=== PATIENT | male | born 1940 | race Caucasian/White ===

== ENCOUNTER → 2017-07-25 | Outpatient (CLI) | payer OTHER ==
[~2017-07-25] MED LIST: AMLO5TAB2 PO; ASPI1TAB57 PO; ATOR20TA15 PO; ENAL10TA PO; GLIM4TAB PO; LEVO25TA4 PO; MELO7.5T27 PO; METF1000 PO; METF500T PO; MULT1TAB85 PO; SPIRCAP INH; VITA100018 PO
--- NOTE | 2017-07-25 19:41 | EKG ---
Date Performed: 07/25/2017 Time Performed: 11:54:10 PTAGE: 77 years EKG: Sinus rhythm MARKED LEFT AXIS DEVIATION ABNORMAL ECG PREVIOUS TRACING : 05/06/2016 17. Since the prior tracing, there has been no significant change DOCTOR: Lenin Quintero Interpretating Date/Time 07/25/2017 19:40:23
== END ==
LOC: HSDC 11:39
PROVIDERS: ATTEND Orthopaedic Surgery Orthopaedic Surgery of the Spine
DX: Z01.810 Encounter for preprocedural cardiovascular examination (principal); R94.31 Abnormal electrocardiogram [ECG] [EKG]
CPT/HCPCS: 93005

== ENCOUNTER 2017-12-25 05:21 | Inpatient (IN) ==
[2017-12-25] MEDS ORDERED: Gabapentin 300 MG Capsule PO ONE ×2 (05:56→06:47)
[2017-12-25] MEDS ORDERED: Celecoxib 200 MG Capsule PO ONE ×2 (05:56→06:47)
[2017-12-25] MEDS ORDERED: Dexamethasone Inj 20 MG/5 ML Vial IV.PUSH ONE ×2 (05:56→06:47)
[2017-12-25] MEDS ORDERED: Famotidine PF Inj 20 MG/2 ML Vial IV.PUSH ONE ×2 (05:56→06:47)
[2017-12-25] MEDS ORDERED: Insulin NovoLIN Regular Correctional Sugar Inj SQ SCH (06:00)
[2017-12-25] MEDS ORDERED: Chlorhexidine 4% Topical 120 APPLIC/120 ML Bottle TOPICAL SCH (06:00)
[2017-12-25] MEDS ORDERED: Sodium Chlor 0.9% Inj 500 ML IV.SIG SCH (06:00)
[2017-12-25] MEDS ORDERED: Bupivacaine/Epi PF 0.25% Inj 20 ML, Bupivacaine Liposo PF 1.3% Inj 20 ML, Sodium Chlor ... P-ARTICULR SCH ×2 (06:00)
[2017-12-25] MEDS ORDERED: Metoprolol Tartrate 25 MG Tablet PO SCH (06:00)
[2017-12-25] MEDS ORDERED: Chlorhexidine Gluconate 2% 1 Pack (2 Cloths) TOPICAL SCH (06:00)
[2017-12-25] MEDS ORDERED: Tranexamic Acid Inj 1,430 MG in Sodium Chlor 0.9% Inj 100 ML IV.SIG SCH (06:00)
[2017-12-25] MEDS ORDERED: Vancomycin Inj 1 GM/200 ML PIGGYBACK IV.SIG SCH ×2 (06:00→18:00)
[2017-12-25] MEDS ORDERED: fentaNYL Citrate Inj 100 MCG/2 ML Ampul ONE (06:27)
[2017-12-25] MEDS ORDERED: Famotidine PF Inj 20 MG/2 ML Vial ONE (06:27)
[2017-12-25] MEDS: ceFAZolin 2 GM Premix Inj 2 GM/50 ML PIGGYBACK IV.SIG SCH ×3 (07:01→22:10)
--- NOTE | 2017-12-25 07:18 | P.DCO ---
- Physical Therapy Physical Therapy: Gait training Hip: Total hip, Protocol: Right, Progress to weight bearing Right Lower Extremity Weight Bearing: Weight bearing as tolerated - Nursing Dressing changes: Do not change dressing (x 6 days), Daily dressing change ( beginning POD 7 with primapore. maintain surgical mesh on incision) - Certification Need for Home Health services: I have seen patient Curtis Mcgee on 12/25/17. My clinical findings support the need for the requested home health care services because: Need for Home Health Services: Limited mobility due to disease progression Homebound Certification: I certify that my clinical findings support that this patient is homebound because: Homebound Certification: Post-op weakness
--- NOTE | 2017-12-25 08:52 | P.OP ---
- Preoperative Diagnosis (1) Osteoarthritis of right hip Date of procedure: 12/25/17 Procedure: Right total hip arthroplasty via anterior approach Anesthesia: GETA Surgeon: Beau Magallanes MD Revising Clerk: OSBALDO Sultana PA-C The surgical procedure was assisted by my physician operations and intelligence assistant. My P.A. presence was necessary throughout this case for the manipulation and positioning of the surgical extremity. My P.A. was assisting me throughout the duration of this procedure. The skill set of a physician operations and intelligence assistant was medically necessary to complete this procedure. During the surgical case the director surgical was working at the back table and the physician operations and intelligence assistant was directly assisting me. Estimated blood loss (mL): 250 Operation and Findings: PLAN OF ACTIVITY Weight bear as tolerated. IMPLANTS USED DePuy Corail size [12] collared stem with a size [54] [place] Gription cup, [54 /36] Altrx poly liner, and a [36+1 metal head. DETAILS OF PROCEDURE: This patient has a long history of hip pain. Patient was found to have severe osteoarthritis. The patient had radiographic evidence of joint space narrowing with [id number] arthritis and osteophytes around the acetabulum as well as the femoral head. There was also some cystic changes. The patient failed conservative treatment with pain medications, anti-inflammatories, physical therapy, assistive devices including a cane, as well as therapeutic injection of the hip. Patient's hip arthritis was limiting his ability to ambulate and perform activities of daily living. The patient wished to proceed with surgery and informed consent was obtained. Operative site was marked. I discussed both posterior approach and anterior approach with the patient and decision was made for anterior approach. Patient was brought to OR and placed on OR table. IV sedation and general anesthesia was administered by anesthesiologist. Patient positioned on a Sharon table and was given IV antibiotics. Time-out procedure was performed. The hip and thigh were prepped with alcohol followed by Hibiclens. The thigh was draped in the usual sterile fashion. Clean Air Suite was used for this procedure. The procedure began with a 5-inch incision over the anterolateral thigh. Subcutaneous tissue was dissected with Bovie. The fascia over the tensa fasciae latae was incised. Care was taken to avoid injury to the lateral femoral cutaneous nerve. The tensor muscle was retracted laterally. Sartorius was retracted medially. Retractors were now placed. The reflected head of the rectus is now elevated. A capsulotomy was performed over the anterior head capsule. Sutures were placed to help retract the capsule. At this point the femoral head and neck were identified. With soft tissue protected, oscillating saw was used to make a cut through the femoral neck, the femoral head was now removed. At this point attention was turned to preparation of the acetabulum. The labrum was excised. The acetabulum was sequentially reamed up to size [54]. A [place] cup was now placed. Fluoroscopy was used to aid in identification of appropriate version. Cup was fully impacted and found to have excellent fit. Hole eliminator was now placed. The liner was now impacted into the cup. At this point the hip was externally rotated. A hook was placed around the proximal femur. The capsule was released off the lateral and medial femur. The hip was now extended and adducted. Retractors were placed around the proximal femur to allow for exposure. A box osteotome was used to remove the lateral cortex of the femoral neck. A broach was used to help lateralize the prosthesis. Canal finder was used to create a path down the canal. Next, the canal was sequentially broached up to size [12]. This was found to be an excellent fit. Calcar planer was placed. A standard head was placed, and the hip was reduced. The hip was found to have excellent stability with good range of motion. The leg lengths were measured under fluoroscopy and found to be equal compared to preoperatively. Trial broach was removed. The Corail stem was opened. Stem was fully impacted into the proximal femur in appropriate version. The femoral head was placed. The hip was again reduced. Fluoroscopy confirmed excellent alignment of prosthesis. The wound was thoroughly irrigated and capsule was closed with #1 Vicryl. The fascia over the tensor fasciae muscle was closed with #1 Vicryl, subcutaneous tissue was closed with 3-0 Vicryl and the skin was closed with maricarmen and Dermabond skin closure. The capsule layers, muscle, and subcutaneous tissue were injected with a mixture of saline and bupivicaine. Dressings were applied. The patient was transferred to Recovery Room in stable condition.
[2017-12-25] MEDS ORDERED: Post-op Orders (for Pharmacy) OTHER STA (08:54)
[2017-12-25] MEDS ORDERED: Promethazine 25 MG Supp RECTAL PRN (08:54)
[2017-12-25] MEDS ORDERED: Bisacodyl 10 MG Supp RECTAL PRN (08:54)
[2017-12-25] MEDS ORDERED: Morphine Inj 4 MG/ML Vial IV.PUSH PRN (08:54)
[2017-12-25] MEDS ORDERED: Tranexamic Acid Inj 1,000 MG in Sodium Chlor 0.9% Inj 100 ML IV.SIG SCH (09:00)
[2017-12-25] MEDS ORDERED: *Meperidine Inj 25 MG/ML Vial PERIprocedural Use ONLY ONE (09:11)
[2017-12-25] MEDS ORDERED: Ketorolac Inj 30 MG/ML (IVP) Vial ONE (09:41)
--- NOTE | 2017-12-25 09:57 | XR ---
EXAM DATE: 12/25/2017 9:44 AM EDT AGE/SEX: 77 years / Male INDICATIONS: Post op right total hip replacement. CLINICAL DATA: This is the patient's initial encounter. Patient reports that signs and symptoms have been present for 1 day and indicates a pain score of Nonresponsive. MEDICAL/SURGICAL HISTORY: . Hypertension. Hypercholesterolemia. Chronic obstructive pulmonary d isease. Diabetes. . Right total hip. COMPARISON: No prior exams available for comparison. FINDINGS: Total hip arthroplasty is in place on the right side. The femoral and acetabular componen ts appear intact. There are no signs of loosening or fracture. CONCLUSION: Intact total hip prosthesis for technique. Electronically signed by: Renetta Mcmanus MD 12/25/2017 9:55 AM EDT
[2017-12-25] MEDS: amLODIPine 5 MG Tablet PO SCH ×2 (10:06→20:06)
[2017-12-25] MEDS ORDERED: Lidocaine PF 1% Inj 5 ML Syringe INFILTRATN ONE (14:34)
[2017-12-25] MEDS: Celecoxib 200 MG Capsule PO SCH ×2 (14:34→20:05)
[2017-12-25] MEDS ORDERED: Glycopyrrolate Inj 1 MG/5 ML Syringe IV.PUSH ONE (14:34)
[2017-12-25] MEDS ORDERED: Neostigmine Inj 5 MG/5 ML Syringe IV.PUSH ONE (14:34)
[2017-12-25] MEDS: Ketorolac Inj 30 MG/ML (IVP) Vial IV.PUSH SCH ×2 (14:34→22:00)
[2017-12-25] MEDS ORDERED: Phenylephrine/NS 1000 MCG/10ML Syringe IV.PUSH ONE (14:34)
[2017-12-25] MEDS: Glimepiride 4 MG Tablet PO SCH ×2 (14:34→20:06)
[2017-12-25] MEDS: Calcium/Vitamin D 250/125 MG Tablet PO SCH ×2 (14:34→17:33)
[2017-12-25] MEDS: Senna/Docusate Sodium 8.6/50 MG Tablet PO SCH ×2 (14:34→20:05)
[2017-12-25] MEDS: Multivitamin/Minerals Therapeutic Tablet PO SCH (14:35)
[2017-12-25] MEDS: Levothyroxine 75 MCG Tablet PO SCH (14:35)
--- NOTE | 2017-12-25 17:05 | XR ---
EXAM DATE: 12/25/2017 5:01 PM EDT AGE/SEX: 77 years / Male INDICATIONS: Right total hip replacement. CLINICAL DATA: This is the patient's initial encounter. Patient reports that signs and symptoms have been present for 1 day and indicates a pain score of Nonresponsive. MEDICAL/SURGICAL HISTORY: None. None. COMPARISON: No prior exams available for comparison. FINDINGS Total hip arthroplasty is in place. The femoral and acetabular components appear intact. T here are no signs of loosening or fracture. CONCLUSION: Intact total hip prosthesis for technique. Electronically signed by: Renetta Mcmanus MD 12/25/2017 5:04 PM EDT
[2017-12-25] MEDS: Vancomycin Inj 1,000 MG in Sodium Chlor 0.9% Inj 250 ML IV.SIG SCH (17:34)
[2017-12-26 05:10] LABS: Hematocrit 26.9 % (39.0-51.0)
[2017-12-26] MEDS: Vancomycin Inj 1,000 MG in Sodium Chlor 0.9% Inj 250 ML IV.SIG SCH (05:27)
[2017-12-26] MEDS: ceFAZolin 2 GM Premix Inj 2 GM/50 ML PIGGYBACK IV.SIG SCH ×2 (06:37→11:51)
[2017-12-26] MEDS: Levothyroxine 75 MCG Tablet PO SCH (06:37)
--- NOTE | 2017-12-26 06:40 | P.PNOP ---
Subjective Interval history: POD 1 s/p right Anterior EVARISTO -doing well. reports soreness but states that therapy went well yesterday. Physical Exam Vital signs: Vital Signs 12/25/17 09:06 12/25/17 09:15 12/25/17 09:30 Temperature 98 F Pulse Rate 105 H 91 H 85 Respiratory Rate 20 15 18 Blood Pressure 163/73 H 151/70 H 141/60 H Pulse Oximetry 96 95 95 12/25/17 09:45 12/25/17 10:00 12/25/17 10:17 Temperature Pulse Rate 84 80 Respiratory Rate 14 17 Blood Pressure 140/65 136/64 Pulse Oximetry 97 96 98 12/25/17 10:30 12/25/17 11:00 12/25/17 12:00 Temperature Pulse Rate 84 81 80 Respiratory Rate 15 12 14 Blood Pressure 120/56 L 97/49 L 107/53 L Pulse Oximetry 99 96 94 L 12/25/17 12:30 12/25/17 13:00 12/25/17 13:20 Temperature 98.2 F Pulse Rate 79 Respiratory Rate 19 Blood Pressure 117/56 L Pulse Oximetry 95 96 96 12/25/17 16:00 12/25/17 20:00 12/26/17 00:00 Temperature 97.5 F L 97.5 F L 97.6 F Pulse Rate 80 71 72 Respiratory Rate 20 24 20 Blood Pressure 105/57 L 123/61 119/59 L Pulse Oximetry 91 L 92 L 94 L 12/26/17 04:00 12/26/17 04:10 Temperature 97.6 F Pulse Rate 87 Respiratory Rate 20 17 Blood Pressure 125/64 Pulse Oximetry 93 L Intake & Output 12/25/17 12/25/17 12/26/17 06:59 18:59 06:59 Intake Total 1950 / 1950 250 / 250 Output Total 300 / 300 400 / 400 Balance 1650 / 1650 -150 / -150 Weight 95.3 kg 95.3 kg 95.3 kg Intake: IV 100 / 100 250 / 250 Vancomycin Inj 1,000 MG In NS 250 / 250 Inj 250 ML @ 200 mls/hr IV.SIG Q12H GEORGE Rx#:[id number] Ancef 2 GM Premix Inj 2 gm In 100 / 100 50 ml @ 100 mls/hr IV.SIG Q8H GEORGE Rx#:[id number] Oral 50 / 50 Anesthesia Amount 1800 / 1800 Output: Urine 400 / 400 Estimated Blood Loss 300 / 300 Other: Date of Last Bowel Movement 12/24/17 12/24/17 Weight On Admission 95.3 kg Narrative: RLE: dressing clean and dry. intct. NVI Results - Labs CBC & Chem 7: 12/26/17 04:11 Laboratory Results - last 24 hr 12/25/17 12/25/17 12/26/17 06:05 17:30 04:11 Hgb 9.0 L Hct 26.9 L POC Glucose 266 H Blood Type O Positive Blood Type Recheck Required Antibody Screen Negative - Imaging Impressions Hip X-Ray 12/25/17 00:00 CONCLUSION: Intact total hip prosthesis for technique. Hip X-Ray 12/25/17 00:00 CONCLUSION: Intact total hip prosthesis for technique. Assessment and Plan - Problem List (1) Status post total hip replacement, right Code(s): Z96.641 - Presence of right artificial hip joint Status: Acute - Assessment and Plan 1) Right Anterior EVARISTO - POD 1 -work with therapy this AM -if doing well with PT, ok for discharge home with [facility] today -plan for DC home later today -WBAT -maintain dressing on hip x 6 days and begin daily dressing changes on POD 7 -81mg aspirin BID x 30 days for DVT prophylaxis -f/u with [facility] or [facility] in 2 weeks [employer] Prescription Drug Monitoring Database has been queried and verified prior to prescribing the controlled substance. Acute pain exception. This patient has normal, predicted, physiological, and time limited response to an adverse mechanical stimulus associated with surgery, trauma, or acute illness as described in my notes. There is a lack of alternative treatment options other than to include the prescribed narcotic treatment for this condition.
--- NOTE | 2017-12-26 06:48 | P.DS ---
Date of admission: 12/25/17 05:21 Primary care physician: Nash Tobar MD Attending physician on discharge: Beau Magallanes Anticipated date of discharge: 12/26/17 Brief History from admission: Patient admitted from an outpatient basis for elective right total hip arthroplasty. He has been battling right hip osteoarthritis for some time now. He is exhausted all conservative measures which include activity modification , anti-inflammatory therapy, and steroid injections. The decision was made to move forward with an elective right total hip arthroplasty DS: Diagnosis - Discharge Diagnosis (1) Status post total hip replacement, right Status: Acute Diagnosis: Principal DS: Medications - Discharge Medications Prescriptions: aspirin [Aspirin Low Dose] 81 mg PO BID 30 Days #60 tab hydrocodone-acetaminophen [[place]] 1 tab PO Q4H PRN #40 tab PRN Reason: pain 6-10 DS: Summary Hospital Course: Patient admitted for elective right total hip arthroplasty. He tolerated the procedure well was admitted to [facility]. He was out of bed on postop day 0 with physical therapy and ambulating with a walker. He was ambulate well with mild stiffness. By postop day 1, he was hemodynamically stable, his pain was well controlled, he was doing well with therapy, and he was fit for discharge home with home health care. He will be discharged home today with home health care. He will maintain the dressing on his right hip for 6 days and begin daily dressing changes with a Primapore dressing on postop day 7. He will take aspirin 81 mg twice daily for DVT prophylaxis. He will do this for 30 days. He will continue fully weightbearing have a regular diet. He will follow-up with Dr. Magallanes or his PA in 2 weeks - Time Spent with Patient Total time spent providing and/or coordinating discharge services: - Quality: VTE Deep Vein Thrombosis/Pulmonary Embolism Present on Admission: No Exam Vital signs: Vital Signs 12/25/17 09:06 12/25/17 09:15 12/25/17 09:30 Temperature 98 F Pulse Rate 105 H 91 H 85 Respiratory Rate 20 15 18 Blood Pressure 163/73 H 151/70 H 141/60 H Pulse Oximetry 96 95 95 12/25/17 09:45 12/25/17 10:00 12/25/17 10:17 Temperature Pulse Rate 84 80 Respiratory Rate 14 17 Blood Pressure 140/65 136/64 Pulse Oximetry 97 96 98 12/25/17 10:30 07/17/18 11:00 12/25/17 12:00 Temperature Pulse Rate 84 81 80 Respiratory Rate 15 12 14 Blood Pressure 120/56 L 97/49 L 107/53 L Pulse Oximetry 99 96 94 L 12/25/17 12:30 12/25/17 13:00 12/25/17 13:20 Temperature 98.2 F Pulse Rate 79 Respiratory Rate 19 Blood Pressure 117/56 L Pulse Oximetry 95 96 96 12/25/17 16:00 12/25/17 20:00 12/26/17 00:00 Temperature 97.5 F L 97.5 F L 97.6 F Pulse Rate 80 71 72 Respiratory Rate 20 24 20 Blood Pressure 105/57 L 123/61 119/59 L Pulse Oximetry 91 L 92 L 94 L 12/26/17 04:00 12/26/17 04:10 Temperature 97.6 F Pulse Rate 87 Respiratory Rate 20 17 Blood Pressure 125/64 Pulse Oximetry 93 L Intake & Output 12/25/17 12/25/17 12/26/17 06:59 18:59 06:59 Intake Total 1950 / 1950 250 / 250 Output Total 300 / 300 400 / 400 Balance 1650 / 1650 -150 / -150 Weight 95.3 kg 95.3 kg 95.3 kg Intake: IV 100 / 100 250 / 250 Vancomycin Inj 1,000 MG In NS 250 / 250 Inj 250 ML @ 200 mls/hr IV.SIG Q12H GEORGE Rx#:[id number] Ancef 2 GM Premix Inj 2 gm In 100 / 100 50 ml @ 100 mls/hr IV.SIG Q8H GEORGE Rx#:[id number] Oral 50 / 50 Anesthesia Amount 1800 / 1800 Output: Urine 400 / 400 Estimated Blood Loss 300 / 300 Other: Date of Last Bowel Movement 12/24/17 12/24/17 Weight On Admission 95.3 kg Narrative: RLE: dressing clean and dry. intact. NVI Results Procedures completed during hospitalization: Right Anterior total hip arthroplasty Labs on day of discharge: Labs from last 24 hours 12/26/17 12/25/17 12/25/17 04:11 17:30 06:05 Hgb 9.0 L Hct 26.9 L POC Glucose 266 H Blood Type O Positive Blood Type Recheck Required Antibody Screen Negative - Impressions ITS Impressions Hip X-Ray 12/25/17 00:00 CONCLUSION: Intact total hip prosthesis for technique. Discharge Plan - Discharge Disposition Patient Disposition: W/Home Health Service - Discharge Condition Condition: Good - Discharge Order Discharge Orders: Discharge Order (Routine); Ordered 12/26/17 Ordered By: Manny Guerin - Discharge Details Anticipated Discharge Date: 12/26/17 - Physicians Team Primary Care Provider: Nash Tobar Attending Provider: Beau Magallanes - Rxs /Orders / Referrals /Forms Prescriptions: New hydrocodone-acetaminophen [[place]] 10-325 mg Tablet 1 tab PO Q4H PRN (Reason: pain 6-10) Qty: 40 RF: 0 Continue amlodipine 5 mg Tablet 5 mg PO BID atorvastatin 20 mg Tablet 20 mg PO HS enalapril maleate 10 mg Tablet 10 mg PO BID glimepiride 4 mg Tablet 4 mg PO BID levothyroxine 25 mcg Capsule 37.5 mcg PO DAILY metformin 1,000 mg Tablet 1,000 mg PO BID multivit with min-folic acid [Adult One Daily Multivitamin] 0.4 mg Tablet 1 tab PO DAILY tiotropium bromide [Spiriva Respimat] 2.5 mcg/actuation Mist 2 puff INHALATION DAILY Changed aspirin [Aspirin Low Dose] 81 mg Tablet,Delayed Release (Dr/Ec) 81 mg PO BID 30 Days Qty: 60 Changed from: 81 mg oral daily Discontinued meloxicam 7.5 mg Tablet 7.5 mg PO BID Ambulatory Orders / Order Sets / DME: Walker With Front Wheels (1 each) (Routine) Location: Determined by Patient Ordered By: Manny Guerin Referrals: Nash Tobar MD [Primary Care Provider] - See Instructions Beau Magallanes MD [Physician] - See Instructions (2 weeks Your appointment has been scheduled for Sunday01/15/18 at 12:50pm. If you cannot make this appointment, please call the office to reschedule ) - Discharge Instructions Additional Instructions: Keep dressing clean, dry, and intact Take medication as prescribed Follow up with MD as instructed
[2017-12-26] MEDS: amLODIPine 5 MG Tablet PO SCH (08:43)
[2017-12-26] MEDS: Celecoxib 200 MG Capsule PO SCH (08:43)
[2017-12-26] MEDS: Multivitamin/Minerals Therapeutic Tablet PO SCH (08:43)
[2017-12-26] MEDS: Calcium/Vitamin D 250/125 MG Tablet PO SCH (08:44)
[2017-12-26] MEDS: Glimepiride 4 MG Tablet PO SCH (08:44)
[2017-12-26] MEDS: Senna/Docusate Sodium 8.6/50 MG Tablet PO SCH (08:44)
[2017-12-26] MEDS ORDERED: SPIRIVA RESPIMAT INH SCH ×2 (09:00)
== END 2017-12-26 14:35 | disposition home health service (06) ==
LOC: HSDI 05:21 → N06 13:28
PROVIDERS: ADMIT Orthopaedic Surgery Orthopaedic Trauma; ATTEND Orthopaedic Surgery Orthopaedic Trauma
DX: M16.11 Unilateral primary osteoarthritis, right hip